=== PATIENT | male | born 1975 | race African-American/Black ===

== ENCOUNTER 2025-05-16 17:03 | Emergency (ER) | payer OTHER ==
[2025-05-16 17:09] VITALS: RESP 18
--- NOTE | 2025-05-16 17:33 | ED ---
General Adult HPI - General Chief complaint: Back Pain/Injury Stated complaint: Back pain,chest pain Time Seen by Provider: 05/16/25 17:04 Source: patient Mode of arrival: ambulatory Limitations: no limitations - History of Present Illness Initial comments: Dictation was produced using [employer] dictation software. please excuse any grammatical, word or spelling errors. Chief Complaint: 50-year-old male with back and shoulder pain History of Present Illness: 50-year-old male presents to the emergency department with acute on chronic back and left shoulder pain. Patient states he has sharp pain to his right lower back states that his pain has been pretty well-controlled with Flexeril however started to feel like it was getting worse. Patient also has this intermittent episodes of sharp left shoulder pain whenever he sleeps intermittently. Patient otherwise has no significant symptoms at the bedside. Denies any trauma. The ROS documented in this emergency department record has been reviewed and confirmed by me. Those systems with pertinent positive or negative responses have been documented in the HPI. All other systems are other negative and/or noncontributory. - Related Data Previous Rx's Medication Instructions Recorded Cyclobenzaprine [Flexeril] 10 mg PO TID PRN #20 tab 03/21/25 Doxycycline [Vibramycin] 100 mg PO BID 7 Days #14 capsule 03/21/25 Ketorolac [Toradol] 10 mg PO Q6HR PRN #15 tab 03/21/25 Lidocaine 5% Patch [Lidoderm 5% 1 patch TOPICAL DAILY PRN #30 patch 03/21/25 Patch] HYDROcodone/APAP 5-325MG [[place] 1 tab PO Q6HR PRN 3 Days #12 tab 05/16/25 5-325] Allergies Allergy/AdvReac Type Severity Reaction Status Date / Time No Known Allergies Allergy Verified 05/16/25 17:05 Review of Systems ROS Statement: Those systems with pertinent positive or pertinent negative responses have been documented in the HPI. ROS Other: All systems not noted in ROS Statement are negative. Past Medical History Past Medical History: Hypertension History of Any Multi-Drug Resistant Organisms: None Reported Additional Past Surgical History / Comment(s): eye surgery Past Psychological History: No Psychological Hx Reported Smoking Status: Never smoker Past Alcohol Use History: None Reported Past Drug Use History: None Reported General Exam - General Exam Comments Initial Comments: PHYSICAL EXAM: General Impression: Alert and oriented x3, not in acute distress HEENT: Normocephalic atraumatic, extra-ocular movements intact, pupils equal and reactive to light bilaterally, mucous membranes moist. Cardiovascular: Heart regular rate and rhythm Chest: Able to complete full sentences, no retractions, no tachypnea Abdomen: abdomen soft, non-tender, non-distended, no organomegaly Musculoskeletal: Pulses present and equal in all extremities, no peripheral edema Motor: no focal deficits noted Neurological: CN II-XII grossly intact, no focal motor or sensory deficits noted Skin: Intact with no visualized rashes Psych: Normal affect and mood Limitations: no limitations Course Vital Signs 05/16/25 17:05 Temperature 97.8 F Pulse Rate 71 Respiratory 18 Rate Blood Pressure 183/102 O2 Sat by Pulse 99 Oximetry Medical Decision Making - Medical Decision Making Was pt. sent in by a medical professional or institution (, PA, OPENER, urgent care, hospital, or alf...) When possible be specific @ -No Did you speak to anyone other than the patient for history (EMS, parent, family, police, friend...)? What history was obtained from this source @ -No Did you review nursing and triage notes (agree or disagree)? Why? @ -I reviewed and agree with nursing and triage notes Were old charts reviewed (outside hosp., previous admission, EMS record, old EKG, old radiological studies, urgent care reports/EKG's, alf records)? Report findings @ -No old charts were reviewed Differential Diagnosis (chest pain, altered mental status, abdominal pain women, abdominal pain men, vaginal bleeding, musculoskeletal, weakness, fever, dyspnea, syncope, headache, dizziness, GI bleed, back pain, seizure, CVA, palpatations, mental health)? @ -Differential Back Pain: Strain, zoster, cauda equina syndrome, epidural abscess, vertebral osteomyelitis, discitis, fracture, subluxation, disc herniation, DJD, spinal stenosis, dissection, AAA, pancreatitis, peptic ulcer disease, pyelonephritis, kidney stone, this is not meant to be an all-inclusive list. EKG interpreted by me (3pts min.). @ -None done X-rays interpreted by me (1pt min.). @ -Lumbar spine x-ray and shoulder x-ray shows no acute processes CT interpreted by me (1pt min.). @ -None done U/S interpreted by me (1pt. min.). @ -None done What testing was considered but not performed or refused? (CT, X-rays, U/S, labs)? Why? @ -None What meds were considered but not given or refused? Why? @ -None Was smoking cessation discussed for >3mins.? @ -No Were there social determinants of health that impacted care today? How? (Homelessness, low income, unemployed, alcoholism, drug addiction, transportation, low edu. Level, literacy, decrease access to med. care, half-way, rehab)? @ -No Was there de-escalation of care discussed even if they declined (Discuss DNR or withdrawal of care, Hospice)? DNR status @ -No What co-morbidities impacted this encounter? (DM, HTN, Smoking, COPD, CAD, Cancer, CVA, ARF, Chemo, Hep., AIDS, mental health diagnosis, sleep apnea, morbi d obesity)? @ -None Was patient admitted / discharged? Hospital course, mention meds given and route, prescriptions, significant lab abnormalities, going to OR and other pertinent info. @ -50-year-old back strain and intermittent left shoulder pain. Vital signs stable. Patient no acute distress. X-rays unremarkable. Patient given analgesics discharged with follow-up with primary care doctor. Did you discuss the management of the patient with other professionals (professionals i.e. , PA, OPENER, lab, RT, psych nurse, nursing home social worker, bulb brander, teacher, ground intelligence officer, child welfare caseworker)? Give summary @ -No Was critical care preformed (if so, how long)? @ -No Undiagnosed new problem with uncertain prognosis? @ -No Drug Therapy requiring intensive monitoring for toxicity (Heparin, Nitro, Insul in, Cardizem)? @ -No Were any procedures done? @ -No Diagnosis/symptom? Acute, or Chronic, or Acute on Chronic? Uncomplicated (without systemic symptoms) or Complicated (systemic symptoms)? @ -Back strain, left shoulder pain Side effects of treatment? @ -No Exacerbation, Progression, or Severe Exacerbation? @ -No Poses a threat to life or bodily function? How? (Chest pain, [place], [place], pneumonia, PE, COPD, DKA, ARF, appy, cholecystitis, CVA, Diverticulitis, Homicidal, Suicidal, threat to staff... and all critical care pts) @ -humberto Disposition Clinical Impression: Strain of lumbar region Disposition: HOME SELF-CARE Condition: Fair Instructions (If sedation given, give patient instructions): Acute Low Back Pain (ED) Prescriptions: HYDROcodone/APAP 5-325MG [[place] 5-325] 1 tab PO Q6HR PRN 3 Days #12 tab PRN Reason: Severe Pain Is patient prescribed a controlled substance at d/c from ED?: Yes If prescribed controlled substance>3 days was MAPS reviewed?: Prescribed <3 Days Referrals: [facility] [NON-[facility]] - 1-2 days [facility] [[facility]] - 1-2 days Time of Disposition: 18:11
[2025-05-16] MEDS: HYDROcodone/APAP 5-325MG 1 EACH TAB PO STA (17:35)
--- NOTE | 2025-05-16 17:52 | XR ---
EXAMINATION TYPE: XR shoulder complete LT DATE OF EXAM: 05/16/2025 5:45 PM COMPARISON: None available. CLINICAL INDICATION: Male, 50 years old with history of atraumatic pain; PHH, pain TECHNIQUE: XR shoulder complete LT; examined in AP, internally rotated and scapular Y projections. FINDINGS: No evidence of acute osseous pathology, joint dislocation, or soft tissue swelling. The remaining po rtions of the visualized chest are unremarkable. 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 IMPRESSION: No acute osseous pathology. [facility], , 05/16/2025 5:50 PM
--- NOTE | 2025-05-16 18:00 | XR ---
EXAMINATION TYPE: XR lumbar spine 2 or 3V DATE OF EXAM: 05/16/2025 5:45 PM COMPARISON: Prior radiograph 03/21/2025. CLINICAL INDICATION: Male, 50 years old with history of atraumatic pain; PHH, pain TECHNIQUE: XR lumbar spine 2 or 3V - Frontal, lateral and coned in L5-S1 lateral views of the spine. FINDINGS: 5 lumbar type vertebral bodies are present for the purposes of this examination. No acute f racture or traumatic subluxation. Redemonstration grade 1 anterolisthesis of L4 on L5. Minimal retrol isthesis of L3 on L4. Multilevel facet arthropathy and intervertebral disc space loss. Minimal anteri or osteophyte formation. Lumbar spine vertebral body heights appear grossly maintained. IMPRESSION: 1. No acute fracture or traumatic subluxation. 2. Lumbosacral spine degenerative changes as above. [facility], , 05/16/2025 5:58 PM
--- NOTE | 2025-05-16 18:16 | ED ---
Disposition Clinical Impression: Strain of lumbar region Disposition: HOME SELF-CARE Condition: Fair Instructions (If sedation given, give patient instructions): Acute Low Back Pain (ED) Prescriptions: HYDROcodone/APAP 5-325MG [[place] 5-325] 1 tab PO Q6HR PRN 3 Days #12 tab PRN Reason: Severe Pain Sertraline [Zoloft] 25 mg PO DAILY 7 Days #7 tablet Is patient prescribed a controlled substance at d/c from ED?: No Referrals: [facility] [NON-[facility]] - 1-2 days [facility] [[facility]] - 1-2 days
[2025-05-16] MEDS: ACET/COD 300 MG/30 MG STARTER PACK TAB BTL PO STA (18:18)
[2025-05-16 18:22] VITALS: BP 180/96; PULSE 74; TEMP 98.2
== END 2025-05-16 18:23 | disposition home or self-care (01) ==
LOC: EC 17:03
DX: S39.012A Strain of muscle, fascia and tendon of lower back, initial encounter (principal); X58.XXXA Exposure to other specified factors, initial encounter
CPT/HCPCS: 72100; 99283